=== PATIENT | female | born 1990 | race Caucasian/White ===

== ENCOUNTER 2017-03-14 18:19 | Emergency (ER) | END 2017-03-14 20:40 | disposition home or self-care (01) ==

== ENCOUNTER 2017-06-28 14:36 | Emergency (ER) | END 2017-06-28 22:11 | disposition home or self-care (01) ==

== ENCOUNTER 2017-09-22 18:33 | Emergency (ER) | END 2017-09-22 21:38 | disposition home or self-care (01) ==

== ENCOUNTER 2017-10-31 11:11 | Emergency (ER) | END 2017-10-31 12:26 | disposition home or self-care (01) ==

== ENCOUNTER 2017-11-16 09:03 | Emergency (ER) | END 2017-11-16 11:19 | disposition home or self-care (01) ==

== ENCOUNTER 2017-12-21 12:47 | Emergency (ER) | END 2017-12-21 14:07 | disposition home or self-care (01) ==